=== PATIENT | female | born 1945 ===

== ENCOUNTER 2017-07-06 08:19 | Emergency (ER) | payer MEDICAID ==
[2017-07-06 08:28] VITALS: BMI 30.7
[2017-07-06 08:35] VITALS: TEMP 97.6
--- NOTE | 2017-07-06 08:48 | C.PDOC ---
History Of Present Illness 72 year old female presents to the ED for evaluation of right wrist pain which began after she tripped and fell yesterday. Patient is unable to move her wrist. She denies head injury, loss of consciousness, or any symptoms leading to the fall. Chief Complaint (Nursing): Upper Extremity Problem/Injury History Per: Patient History/Exam Limitations: no limitations Onset/Duration Of Symptoms: Hrs Current Symptoms Are (Timing): Still Present Quality: "Pain" Additional History Per: Patient Past Medical History Reviewed: Historical Data, Nursing Documentation, Vital Signs Vital Signs: Last Vital Signs Temp 97.6 F 07/06/17 11:31 Pulse 78 07/06/17 11:31 Resp 18 07/06/17 11:31 BP 123/67 07/06/17 11:31 Pulse Ox 98 07/06/17 13:45 - Medical History PMH: Hypercholesterolemia Surgical History: No Surg Hx Family History: States: Unknown Family Hx - Social History Hx Alcohol Use: No Hx Substance Use: Yes - Immunization History Hx Tetanus Toxoid Vaccination: No Hx Influenza Vaccination: Yes Hx Pneumococcal Vaccination: Yes Review Of Systems Musculoskeletal: Positive for: Other (right wrist pain ) Neurological: Negative for: Other (head injury, LOC ) Physical Exam - Physical Exam Appears: Non-toxic, No Acute Distress Skin: Normal Color, Warm, Dry, Ecchymosis (throughout right wrist ) Head: Atraumatic, Normacephalic Eye(s): bilateral: Normal Inspection Oral Mucosa: Moist Neck: Supple Chest: Symmetrical, No Deformity, No Tenderness Cardiovascular: Rhythm Regular, No Murmur Respiratory: Normal Breath Sounds, No Rales, No Rhonchi, No Wheezing Extremity: No Normal ROM (limited in right wrist secondary to pain ), Capillary Refill (less than 2 seconds ), Swelling (marked, to right wrist ) Pulses: Right Radial: Normal Neurological/Psych: Oriented x3, Normal Speech, Normal Cognition Gait: Steady ED Course And Treatment O2 Sat by Pulse Oximetry: 98 (on RA) Pulse Ox Interpretation: Normal Orthopedic Procedure: Fracture reduction Location: Wrist Performed by: Mid-level Provider (orthopedic PA) Type: Closed Location: Right Anesthetic: Lidocaine 1% Medical Decision Making Medical Decision Making: Impression: 72 year old female with right wrist pain Plan: * CXR * Right Wrist XR * Tylenol PO * Percocet PO * reassess and disposition Progress: CXR and Right Wrist XR ordered and reviewed. Patient refuses narcotic medication. Tylenol PO and Percocet PO administered. Patient underwent closed reduction by orthopedic PA. On reassessment, patient is resting comfortably, showing no signs of distress and has been cleared for discharge. Patient does not want prescription for narcotic pain medication. Patient is advised to f/u with orthopedic care within 1-2 days for further evaluation. Disposition - Disposition Referrals: Rene Leong MD [Staff Provider] - Disposition: HOME/ ROUTINE Disposition Time: 10:45 Condition: GOOD Additional Instructions: Thank you for letting us take care of you today. The emergency medical care you received today was directed at your acute symptoms. If you were prescribed any medication, please fill it and take as directed. It may take several days for your symptoms to resolve. Return to the Emergency Department if your symptoms worsen, do not improve, or if you have any other problems. Please contact your doctor or call one of the physicians/clinics you have been referred to that are listed on the Patient Visit Information form that is included in your discharge packet. Bring any paperwork you were given at discharge with you along with any medications you are taking to your follow up visit. Our treatment cannot replace ongoing medical care by a primary care provider (PCP) outside of the emergency department. Thank you for allowing the [facility] team to be part of your care today. Follow up with Dr. Gallego (orthopedics) in 2-3 days for re-evaluation and further management. Prescriptions: Ibuprofen [Motrin] 600 mg PO Q6 PRN #20 tab PRN Reason: Pain, Moderate (4-7) Instructions: Cast Care, Wrist Fracture (DC) Forms: zhouwu (Georgian), Work Excuse - Clinical Impression Clinical Impression: Wrist fracture - Scribe Statement The provider has reviewed the documentation as recorded by the Scribe (Jazz Wilde) Provider Attestation: All medical record entries made by the Scribe were at my direction and personally dictated by me. I have reviewed the chart and agree that the record accurately reflects my personal performance of the history, physical exam, medical decision making, and the department course for this patient. I have also personally directed, reviewed, and agree with the discharge instructions and disposition.
--- NOTE | 2017-07-06 09:07 | RAD ---
Chest x-ray single frontal view History: Infiltrate. Comparison: None available. Findings: Biapical pleural thickening with upper lobe granulomatous changes. No focal infiltrate or effusion. Minimal left basilar atelectasis. Small nodular density at the left lung base may represent prominent vessel on end. Tortuous aorta. Calcification at the aortic knob. Degenerative changes in the spine with paravertebral osteophytes. Impression: Biapical pleural thickening with upper lobe granulomatous changes. No focal infiltrate or effusion. Minimal left basilar atelectasis. Small nodular density at the left lung base may represent prominent vessel on end. Tortuous aorta. Calcification at the aortic knob.
[2017-07-06] MEDS ORDERED: Lidocaine 1% Inj (20ml) INFIL ONE (09:09)
--- NOTE | 2017-07-06 09:10 | RAD ---
PROCEDURE: Right Wrist Radiographs. HISTORY: r/o fx COMPARISON: None. FINDINGS: BONES: Comminuted transverse distal radial fracture. Mild dorsal displacement and angulation. Nondisplaced ulnar styloid process fracture. Radiocarpal articulation and intercarpal articulations appear intact. Normal carpal alignment is maintained. JOINTS: As above SOFT TISSUES: Normal. OTHER FINDINGS: None. IMPRESSION: Mildly displaced distal radial fracture. Nondisplaced ulnar styloid process fracture
[2017-07-06] MEDS ORDERED: oxyCODONE 5 mg Immediate Release Tab PO STA (10:10)
--- NOTE | 2017-07-06 10:10 | CP.PCM.CON ---
History of Present Illness - History of Present Illness History of Present Illness: Orthopedic consultation Dr. Gallego 72F LHD complains of right wrist pain after fall yesterday. She denies numbness/ tingling. She denies LOC/headache/CP/SOB preceding fall/n/v. Denies pain in other extremities. NKDA Review of Systems - Review of Systems All systems: reviewed and no additional remarkable complaints except - Constitutional Additional comments: no fever/chills - Cardiovascular Cardiovascular: As Per HPI - Respiratory Respiratory: As Per HPI - Gastrointestinal Gastrointestinal: As Per HPI - Musculoskeletal Musculoskeletal: As Per HPI - Integumentary Additional comments: bruising - Neurological Neurological: As Per HPI - Hematologic/Lymphatic Hematologic: absent: As Per HPI, Easy Bleeding, Easy Bruising, Lymphadenopathy, Other Past Patient History - Past Medical History & Family History Past Medical History?: Yes Past Family History: Reviewed and not pertinent - Past Social History Smoking Status: Former Smoker - CARDIAC Hx Hypercholesterolemia: Yes - GASTROINTESTINAL Hx Gastrointestinal Disorders: Yes Hx Gastroesophageal Reflux: Yes - PSYCHIATRIC Hx Substance Use: Yes Meds Home Medications: Home Medication List Medication Instructions Recorded Confirmed Type Ibuprofen [Motrin] 600 mg PO Q6 PRN #20 tab 07/06/17 Rx Allergies/Adverse Reactions: Allergies Allergy/AdvReac Type Severity Reaction Status Date / Time No Known Allergies Allergy Verified 07/06/17 08:26 Physical Exam - Constitutional Appears: Well, No Acute Distress - Head Exam Head Exam: ATRAUMATIC - Neck Exam Neck exam: Positive for: Full Rom, Normal Inspection - Respiratory Exam Respiratory Exam: NORMAL BREATHING PATTERN - Cardiovascular Exam Additional comments: +radial pulse - Expanded Upper Extremities Exam Right Shoulder exam: normal inspection (non tender) Elbow exam: normal inspection (no swelling/non tender) Forearm Wrist exam: ecchymosis, swelling, tenderness Neuro motor exam: finger 2-5 abduction intact, thumb abduction, thumb IP flexion intact, thumb opposition intact, wrist extension intact Neurosensory exam: median nerve intact, radial nerve intact, ulnar nerve intact Vascular exam: radial pulse - Neurological Exam Neurological exam: Alert, Oriented x3 - Psychiatric Exam Psychiatric exam: Normal Affect, Normal Mood - Skin Skin Exam: Dry, Intact, Warm Additional comments: significant ecchymosis and swelling to right wrist and forearm Results - Vital Signs Recent Vital Signs: Last Vital Signs Temp 97.6 F 07/06/17 08:29 Pulse 81 04/16/18 08:29 Resp 17 07/06/17 08:29 BP 128/86 07/06/17 08:29 Pulse Ox 98 07/06/17 08:47 - Impressions Impression: Patient Name / ID : CANDI DENNEY / [id number] Exam Date : 07/06/2017 08:50:09 ( Approved ) Study Comment : Sex / Age : F / 72Y Creator : Stefan Monet MD Dictator : Stefan Monet MD Medical Liaison : [employer] Operating Engineer : Stefan Monet MD Approver2 : Report Date : 07/06/2017 09:08:37 My Comment : PROCEDURE: Right Wrist Radiographs. HISTORY: r/o fx COMPARISON: None. FINDINGS: BONES: Comminuted transverse distal radial fracture. Mild dorsal displacement and angulation. Nondisplaced ulnar styloid process fracture. Radiocarpal articulation and intercarpal articulations appear intact. Normal carpal alignment is maintained. JOINTS: As above SOFT TISSUES: Normal. OTHER FINDINGS: None. IMPRESSION: Mildly displaced distal radial fracture. Nondisplaced ulnar styloid process fracture Assessment & Plan (1) Closed fracture of right distal radius Assessment and Plan: risks/benefits/alternatives of closed reduction of distal radius fracture with hematoma block explained to patient who verbalized understanding and consented to procedure patient tolerated well NVID pre and post procedure and splinting keep splint dry and intact, do not remove sling elevate hand above elbow at all times pain meds per ER patient to f/u office of Dr. Gallego within 1 week call for appointment d/w Dr. Bennett, agrees with above Status: Acute (2) Nondisplaced fracture of right ulna styloid process, initial encounter for closed fracture Status: Acute Procedures Attestation:: I certify that I have explained the specified Operation(s) or Procedure(s), risks, benefits and reasonable alternatives to the Patient and/or other person responsible. The opportunity was given to ask questions and all questions answered - Orthopedic Fracture Reduction Fracture #1 Consent Obtained: verbal consent Time Out Performed: Yes Side: right Fracture Reduction Location: radius Analgesia: hematoma block Technique: direct manipulation Post Reduction X-rays Demonstrate: acceptable reduction (post reduction xrays right wrist show improvement of length, better displacement, but still displaced , no angulation) Post-Reduction Neuro Exam: intact Post-Reduction Vascular Exam: intact Splint Applied: Yes Patient Tolerated Procedure: well, no complications - Orthopedic Splinting/Casting Injury #1 Side: right Upper Extremity Injury Location: wrist Upper Extremity Immobilizer: sugar tong splint
[2017-07-06] MEDS ORDERED: oxyCODONE 5 mg Immediate Release Tab ONE (10:35)
[2017-07-06 11:34] VITALS: BP 123/67; PULSE 78; RESP 18
[2017-07-06 13:03] VITALS: O2SAT 98
--- NOTE | 2017-07-06 17:18 | RAD ---
PROCEDURE: Right Wrist Radiographs. HISTORY: post reduction COMPARISON: July 06, 2017. Pre reduction study 08:51 FINDINGS: BONES: Improved anatomic alignment following close reduction of major fracture fragments distal right radius. JOINTS: No significant interval change compared to the prior examination(s). SOFT TISSUES: Soft tissue swelling attests to the acuity of the fracture. OTHER FINDINGS: None. IMPRESSION: Satisfactory postreduction alignment of major fracture fragments distal right radius. Limitations of the current study: Detail obscured by overlying fiberglass cast.
== END 2017-07-06 11:35 | disposition home or self-care (01) ==
LOC: C.ER 08:19
DX: S52.501A Unspecified fracture of the lower end of right radius, initial encounter for closed fracture (principal); S52.614A Nondisplaced fracture of right ulna styloid process, initial encounter for closed fracture; W01.0XXA Fall on same level from slipping, tripping and stumbling without subsequent striking against object, initial encounter

== ENCOUNTER 2017-07-13 09:20 | Emergency (ER) | payer MEDICAID ==
[2017-07-13 09:20] VITALS: BMI 30.7
[2017-07-13 09:30] VITALS: BP 119/75; PULSE 82; RESP 18; TEMP 97.6; O2SAT 98
--- NOTE | 2017-07-13 09:44 | C.PDOC ---
History Of Present Illness <Tory Roy - Last Filed: 07/13/17 09:45> <Kylah Fowler DO - Last Filed: 07/13/17 17:03> Patient is a 72 year old female who presents to the ED with complaint of pain and swelling in right hand. She was initially seen in the ED on 07/06/17 for distal radial fracture and ulnar styloid process fracture. Patient was referred to orthopedics, Dr. Gallego at that time. Patient states she called his office and was told she cannot be seen due to no insurance. Patient states she took Ibuprofen 600mg last night with no relief. Patient did not take any pain medication today. Patient states she came to ED today for new referral and pain medication. She states her PMD Dr. Wright told her she needs a new orthopedic referral but did not refer her. (Kylah Fowler DO) <Tory Roy - Last Filed: 07/13/17 09:45> History Per: Patient Onset/Duration Of Symptoms: Days Current Symptoms Are (Timing): Still Present Quality: Aching Pain Scale Rating Of: 6 Exacerbating Factor(s): Movement Additional History Per: Prior Records <Kylah Fowler DO - Last Filed: 07/13/17 17:03> Time Seen by Provider: 07/13/17 09:31 Chief Complaint (Nursing): Upper Extremity Problem/Injury Past Medical History - Medical History PMH: Hypercholesterolemia Family History: States: Unknown Family Hx - Social History Hx Alcohol Use: No Hx Substance Use: Yes - Immunization History Hx Tetanus Toxoid Vaccination: No Hx Influenza Vaccination: Yes Hx Pneumococcal Vaccination: Yes <Kylah Fowler DO - Last Filed: 07/13/17 17:03> Vital Signs: Last Vital Signs Temp 97.6 F 07/13/17 09:25 Pulse 82 07/13/17 09:25 Resp 18 07/13/17 09:25 BP 119/75 07/13/17 09:25 Pulse Ox 98 07/13/17 10:04 Review Of Systems Constitutional: Negative for: Fever, Chills Eyes: Negative for: Pain, Vision Change ENT: Negative for: Ear Pain, Ear Discharge Cardiovascular: Negative for: Chest Pain, Palpitations, Orthopnea Respiratory: Negative for: Cough, Shortness of Breath Gastrointestinal: Negative for: Nausea, Vomiting, Abdominal Pain, Diarrhea Genitourinary: Negative for: Dysuria, Frequency Musculoskeletal: Positive for: Hand Pain (right hand). Negative for: Neck Pain , Back Pain Neurological: Negative for: Weakness, Numbness, Confusion <Kylah Fowler DO - Last Filed: 07/13/17 17:03> Physical Exam - Physical Exam Appears: Non-toxic, No Acute Distress Skin: Normal Color, Warm Head: Atraumatic, Normacephalic Eye(s): bilateral: EOMI Nose: Normal, No Discharge Oral Mucosa: Moist Tongue: Normal Appearing Neck: Normal ROM, No Midline Cervical Tenderness Lymphatic: No Adenopathy Chest: Symmetrical Cardiovascular: Rhythm Regular Respiratory: Normal Breath Sounds Gastrointestinal/Abdominal: Normal Exam, Bowel Sounds, Soft, No Tenderness Extremity: Tenderness, Swelling, Other (right arm in sugar tong splint, fingers right hand swollen as compared to left, fingers mobile, intact sensation) Neurological/Psych: Oriented x3, Normal Speech <Kylah Fowler DO - Last Filed: 07/13/17 17:03> ED Course And Treatment O2 Sat by Pulse Oximetry: 98 Progress Note: Patient given percocet for better pain control. Patient advised she can continue ibuprofen in between percocet doses. <Kylah Fowler DO - Last Filed: 07/13/17 17:03> Supervising Attending Note - Supervising Attending Note Comment: RESIDENT - Attestation: I have personally seen and examined this patient.: Yes I have fully participated in the care of the patient.: Yes I have reviewed all pertinent clinical information, including history, physical exam and plan: Yes <Tory Roy - Last Filed: 07/13/17 09:45> <Kylah Fowler DO - Last Filed: 07/13/17 17:03> - Notes: Notes:: PS TRIED TO FU [facility] OFFICE BUT WAS REFUSED DUE TO LACK OF INSURANCE. LIMITED RELIEF W MOTRIN 600 MG. EXAM ABOVE, SPLINT INTACT. DISTAL FINGER EDEMA W HEMATOMA. GOOD PERFUSION. ADVISED ARM ELEVATION, DC W PAIN RX, FU CLINIC. (Tory Roy) Disposition <Tory oRy - Last Filed: 07/13/17 09:45> Counseled Patient/Family Regarding: Diagnosis, Need For Followup, Rx Given - Disposition Disposition Time: 10:01 <Kylah Fowler DO - Last Filed: 07/13/17 17:03> - Disposition Referrals: [facility] [Outside] Disposition: HOME/ ROUTINE Condition: GOOD Additional Instructions: Llamar a la clinica para isabelle suzanna con un cirujano ortopedico. Delma isabelle suzanna con camejo doctor primario dentro de isabelle semana. Prescriptions: oxyCODONE/Acetaminophen [Percocet 5/325 mg Tab] 1 tab PO Q6H PRN #10 tab PRN Reason: Pain, Severe (8-10) Instructions: Forearm Fracture (DC), Wrist Fracture (DC), Radius Fracture (DC) Forms: Gen Discharge Inst Nicaraguan, [employer] (Kazakh), Work Excuse - Clinical Impression Clinical Impression: Closed fracture of right distal radius, Wrist fracture - PA / SLIP COVER MAKER / Resident Statement ROHITH has reviewed & agrees with the documentation as recorded. ROHITH has examined the patient and agrees with the treatment plan. <Kylah Fowler DO - Last Filed: 07/13/17 17:03>
[2017-07-13] MEDS ORDERED: Oxycodone/Acetaminophen 5/325 mg Tab PO STA (09:50)
[2017-07-13] MEDS ORDERED: Oxycodone/Acetaminophen 5/325 mg Tab ONE (10:17)
== END 2017-07-13 10:31 | disposition home or self-care (01) ==
LOC: C.ER 09:20
DX: S52.501A Unspecified fracture of the lower end of right radius, initial encounter for closed fracture (principal); E78.00 Pure hypercholesterolemia, unspecified

== ENCOUNTER 2017-07-17 17:06 | Emergency (ER) | payer MEDICAID ==
[2017-07-17 17:06] VITALS: BMI 30.7
[2017-07-17 17:13] VITALS: RESP 16
--- NOTE | 2017-07-17 17:50 | C.PDOC ---
History Of Present Illness Hx obtained via therapeutic program worker 72-year-old female, presents to the emergency department with complaints of swelling and bruising to her right fourth and fifth finger. Patient seen in ED , and had sugar tong placed by ortho. She was seen again in ED on 07/13 because she was having trouble with follow up due to insurance. Patient comes in today because she is wondering why 3rd and 4th digit on right hand are swollen and bruised with occasional parasthesias. Patient f/u in ortho clinic this week and is pending XR result on 07/20. Patient denies any new injuries or symptoms. Time Seen by Provider: 07/17/17 17:22 Chief Complaint (Nursing): Upper Extremity Problem/Injury Past Medical History Vital Signs: Last Vital Signs Temp 98.0 F 07/17/17 18:29 Pulse 86 07/17/17 18:29 Resp 16 07/17/17 18:29 BP 146/76 07/17/17 18:29 Pulse Ox 98 07/17/17 18:48 - Medical History PMH: Hypercholesterolemia Family History: States: Unknown Family Hx - Social History Hx Alcohol Use: No Hx Substance Use: Yes - Immunization History Hx Tetanus Toxoid Vaccination: No Hx Influenza Vaccination: Yes Hx Pneumococcal Vaccination: Yes Review Of Systems Musculoskeletal: Positive for: Hand Pain Neurological: Negative for: Weakness, Numbness Physical Exam - Physical Exam Appears: Well, Non-toxic, No Acute Distress Skin: Normal Color, Warm, Dry, No Rash Neck: Normal ROM Extremity: Other (RIGHT HAND: SUGAR TONG IN PLACE, WARM, GOOD PERFUSION. UNCHANGED FROM PRIOR BRUISING TO 3rd AND 4TH DIGIT) Pulses: Left Radial: Normal, Right Radial: Normal Neurological/Psych: Oriented x3, Normal Speech ED Course And Treatment O2 Sat by Pulse Oximetry: 98 (RA) Pulse Ox Interpretation: Normal Disposition Counseled Patient/Family Regarding: Diagnosis, Need For Followup - Disposition [facility]errals: [facility] [[facility]] [facility] [Outside] Disposition: HOME/ ROUTINE Disposition Time: 17:49 Condition: GOOD Instructions: Wrist Fracture (DC) Forms: [facility] (Liberian) Print Language: PERSIAN - Clinical Impression Clinical Impression: Finger swelling - Scribe Statement The provider has reviewed the documentation as recorded by the Scribe (Jesús Terry) All medical record entries made by the Scribe were at my direction and personally dictated by me. I have reviewed the chart and agree that the record accurately reflects my personal performance of the history, physical exam, medical decision making, and the department course for this patient. I have also personally directed, reviewed, and agree with the discharge instructions and disposition.
[2017-07-17 18:30] VITALS: BP 146/76; PULSE 86; TEMP 98
[2017-07-17 18:41] VITALS: O2SAT 98
== END 2017-07-17 18:30 | disposition home or self-care (01) ==
LOC: C.ER 17:06
DX: M79.89 Other specified soft tissue disorders (principal)

== ENCOUNTER 2017-07-28 11:50 | Emergency (ER) | payer MEDICAID ==
[2017-07-28 11:50] VITALS: BMI 30.7
[2017-07-28 12:06] VITALS: BP 129/79; PULSE 74; RESP 16; TEMP 98.2; O2SAT 97
--- NOTE | 2017-07-28 13:13 | C.PDOC ---
History Of Present Illness 72 y/o female presents with worse pain to right wrist and swelling to fingers, sts splint feels tight. pt sustained an ulnar styloid and distal radius fx on ; pt still with splint applied initially in ED, has not yet seen orthopedics due to insurance issues, has appt on 08/25. Time Seen by Provider: 07/28/17 12:32 Chief Complaint (Nursing): Upper Extremity Problem/Injury History Per: Patient History/Exam Limitations: no limitations Onset/Duration Of Symptoms: Days (since 07/06/17) Current Symptoms Are (Timing): Still Present Quality: Tightness Severity: Moderate Past Medical History Reviewed: Historical Data, Nursing Documentation, Vital Signs Vital Signs: Last Vital Signs Temp 98.2 F 07/28/17 12:05 Pulse 74 07/28/17 12:05 Resp 16 07/28/17 12:05 BP 129/79 07/28/17 12:05 Pulse Ox 97 07/31/17 11:39 - Medical History PMH: Hypercholesterolemia Family History: States: Unknown Family Hx - Social History Hx Alcohol Use: No Hx Substance Use: Yes - Immunization History Hx Tetanus Toxoid Vaccination: No Hx Influenza Vaccination: Yes Hx Pneumococcal Vaccination: Yes Review Of Systems Constitutional: Negative for: Fever, Chills Musculoskeletal: Positive for: Arm Pain Neurological: Negative for: Weakness, Numbness Physical Exam - Physical Exam Appears: Non-toxic, No Acute Distress Skin: Normal Color, Warm, Dry, No Cyanotic Extremity: Other (right arm in splint from fingers to elbow, in sling. exposed fingers swollen with normal cap refill. ) Neurological/Psych: Oriented x3, Normal Speech, Normal Cognition ED Course And Treatment O2 Sat by Pulse Oximetry: 97 - Other Rad right wrist X-Ray: Viewed By Me, Read By Radiologist Interpretation: IMPRESSION: No significant interval change compared to the prior examination(s). Limitations of the current study: Detail obscured by overlying fiberglass cast. Medical Decision Making Medical Decision Makin:55 Case d/c with Blanca Emery. Kendal will come see patient. 1513 waiting for KHADRA Navarro to consult with Dr Leong; pt made aware. 1614 pt has been casted by KHADRA Navarro, recommends no more sling and hand exercise for pt. f/u Dr Leong or with already made ortho appt on 08/25 Disposition Counseled Patient/Family Regarding: Studies Performed, Diagnosis, Need For Followup - Disposition Referrals: Rene Leong MD [Staff Provider] - Disposition: HOME/ ROUTINE Disposition Time: 16:15 Condition: IMPROVED Additional Instructions: Por favor, delma un seguimiento con el Dr. Leong en isabelle semana o con el ortopeda el 08/25 que tiene isabelle suzanna. Delma los ejercicios de mano y codo que le mostraron hoy varias veces al da. Mantenga seco el yeso. Please follow up with Dr Leong in one week or with orthopedist on 08/25 that you have appointment. Do the hand and elbow exercises that you were shown today several times a day. Keep cast dry. Instructions: Cast Care, Wrist Fracture (DC) Forms: Gen Discharge Inst Somali, [employer] (Somali) Print Language: PORTUGUESE - Clinical Impression Clinical Impression: Distal radius fracture, right
--- NOTE | 2017-07-28 15:00 | RAD ---
PROCEDURE: Right Wrist Radiographs. HISTORY: s/p distal rad fx and ulna styloid fx, worse pain COMPARISON: 07/06/2017. FINDINGS: BONES: Stable position, alignment of major fracture fragments height radius and ulna. JOINTS: No change identified SOFT TISSUES: Normal. OTHER FINDINGS: None. IMPRESSION: No significant interval change compared to the prior examination(s). Limitations of the current study: Detail obscured by overlying fiberglass cast.
--- NOTE | 2017-07-28 16:37 | CP.PCM.CON ---
History of Present Illness - History of Present Illness History of Present Illness: Orthopedic consultation Dr. Lopez 72F complains of right hand and forearm pain x 3 weeks. She was seen in ED after fall and found to have right distal radius and ulnar styloid fractures. She had CR and splint application at that time. She says she tried to f/u with ortho senior business consultant, but that he does not take insurance. She called for appointment at [facility], but could not be seen until 08/25. She came to ER for increasing pain in arm and continued swelling. She says she feels splint is too tight. Denies numbness/tingling. Denies other complaints. RHD. Has kept splint intact. Review of Systems - Review of Systems All systems: reviewed and no additional remarkable complaints except - Constitutional Additional comments: no fever/chills - Cardiovascular Additional comments: no CP - Respiratory Additional comments: no SOB - Musculoskeletal Musculoskeletal: As Per HPI - Integumentary Integumentary: Swelling - Neurological Neurological: As Per HPI - Hematologic/Lymphatic Hematologic: absent: As Per HPI, Easy Bleeding, Easy Bruising, Lymphadenopathy, Other Past Patient History - Past Medical History & Family History Past Medical History?: Yes Past Family History: Reviewed and not pertinent - Past Social History Smoking Status: Former Smoker - CARDIAC Hx Hypercholesterolemia: Yes - GASTROINTESTINAL Hx Gastrointestinal Disorders: Yes Hx Gastroesophageal Reflux: Yes - PSYCHIATRIC Hx Substance Use: Yes - SURGICAL HISTORY Hx Surgeries: Yes Other/Comment: PRADIPE fx - ANESTHESIA Hx Anesthesia: Yes Hx Anesthesia Reactions: No Hx Malignant Hyperthermia: No Meds Allergies/Adverse Reactions: Allergies Allergy/AdvReac Type Severity Reaction Status Date / Time No Known Allergies Allergy Verified 07/28/17 13:22 Physical Exam - Constitutional Appears: Well, No Acute Distress - Head Exam Head Exam: ATRAUMATIC - Neck Exam Neck exam: Positive for: Full Rom - Respiratory Exam Respiratory Exam: NORMAL BREATHING PATTERN - Cardiovascular Exam Additional comments: +radial pulse - Expanded Upper Extremities Exam Right Shoulder exam: full ROM Elbow exam: abrasion (to elbow and swelling/ecchymosis to forearm, skin to forearm intact, no erythema, limited pronosupination) Forearm Wrist exam: ecchymosis, swelling, tenderness Neuro motor exam: finger 2-5 abduction intact, thumb abduction, thumb IP flexion intact, thumb opposition intact, wrist extension intact Neurosensory exam: median nerve intact, radial nerve intact, ulnar nerve intact Vascular exam: radial pulse - Neurological Exam Neurological exam: Alert, Oriented x3 - Psychiatric Exam Psychiatric exam: Normal Affect, Normal Mood - Skin Skin Exam: Dry, Warm Results - Vital Signs Recent Vital Signs: Last Vital Signs Temp 98.2 F 07/28/17 12:05 Pulse 74 07/28/17 12:05 Resp 16 07/28/17 12:05 BP 129/79 07/28/17 12:05 Pulse Ox 97 07/28/17 16:20 - Impressions Impression: 07/28/2017 Right wrist xrays 2 views ap/lat/obliq reviewed. Shows relatively maintained height since CR 07/06/17, however there is noted radial translation of distal radius. atient Name / ID : CANDI DENNEY / [id number] Exam Date : 07/28/2017 13:37:18 ( Approved ) Study Comment : Sex / Age : F / [id number] Creator : Jarad Bolton MD Dictator : Jarad Bolton MD [employer] Machine Operator : Data Examination Clerk : Jarad Bolton MD Approver2 : Report Date : 07/28/2017 14:59:04 My Comment : PROCEDURE: Right Wrist Radiographs. HISTORY: s/p distal rad fx and ulna styloid fx, worse pain COMPARISON: 07/06/2017. FINDINGS: BONES: Stable position, alignment of major fracture fragments height radius and ulna. JOINTS: No change identified SOFT TISSUES: Normal. OTHER FINDINGS: None. IMPRESSION: No significant interval change compared to the prior examination(s). Limitations of the current study: Detail obscured by overlying fiberglass cast. Assessment & Plan (1) Closed fracture of right distal radius Assessment and Plan: 3 weeks s/p right distal radius/ulnar styloid fx s/p CR imaging reviewed with Dr. Lopez, states position is still acceptable and states to place SAC and to have patient f/u as outpatient demonstrated to patient how to move fingers incl MCP joints, elevation, and ROM of elbow flex/ext/pron/supination keep cast dry and intact and follow up with ortho in plan d/w Dr. Lopez, agrees with above Status: Acute (2) Nondisplaced fracture of right ulna styloid process, initial encounter for closed fracture Status: Acute Procedures Attestation:: I certify that I have explained the specified Operation(s) or Procedure(s), risks, benefits and reasonable alternatives to the Patient and/or other person responsible. The opportunity was given to ask questions and all questions answered - Orthopedic Splinting/Casting Injury #1 Side: right Upper Extremity Injury Location: wrist (patient verbally consented to right short arm cast application. Well padded SAC applied to wrist right, patient tolerated well, NVID pre and post cast application)
== END 2017-07-28 16:36 | disposition home or self-care (01) ==
LOC: C.ER 11:50
DX: S52.501G Unspecified fracture of the lower end of right radius, subsequent encounter for closed fracture with delayed healing (principal); S52.614G Nondisplaced fracture of right ulna styloid process, subsequent encounter for closed fracture with delayed healing; X58.XXXD Exposure to other specified factors, subsequent encounter